=== PATIENT | female | born 1995 | race Caucasian/White ===

== ENCOUNTER 2021-11-13 11:15 | Day surgery (SDC) | payer BC ==
[2021-11-12 13:36] LABS: Specific Gravity 1.015 (1.005-1.030)
[2021-11-12 13:36] LABS: Absolute Lymphocytes (CBC) 1.7 K/uL (0.7-4.9); Hematocrit 38.3 % (36.0-45.0); Lymphocytes % 27.6 % (15.3-44.8); MPV 9.7 fL (7.6-11.3); RBC Red Blood Cell Count 4.62 M/uL (3.86-4.86)
[2021-11-13] MEDS ORDERED: Ringers Lactate 1,000 ML IV ONE (11:22)
[2021-11-13] MEDS ORDERED: ACETAMINOPHEN 500 MG TAB ONE (12:06)
[2021-11-13] MEDS ORDERED: CELECOXIB 100 MG CAPSULE ONE (12:07)
[2021-11-13] MEDS ORDERED: CELECOXIB 100 MG CAPSULE PO ONE (12:10)
[2021-11-13] MEDS ORDERED: ACETAMINOPHEN 500 MG TAB PO ONE (12:10)
[2021-11-13] MEDS ORDERED: LANO/MINERAL OIL/PETRO 3.5 GM ONE ×2 (12:38→15:06)
--- NOTE | 2021-11-13 14:49 | P.HP ---
Date of Service: 11/13/21 PC: This 26-year-old female presented to my office yesterday with severe pain in the thien cleft. HPC: Patient had been out horseback riding about a week ago. Has a history of pilonidal abscesses. Noticed pain discomfort and swelling in that area for the last few days. Pain is intensified. She presents today for an incision and drainage of a pilonidal abscess. PSHx: Drainage of pilonidal abscess PMHx: Negative Social Hx: No known allergies, does not smoke Sys R:, No cough, wheeze, shortness of breath. No chest pain or palpitations O/E: Awake alert moderate distress HEENT: Negative Chest: Chest movement equal bilaterally Abd: Soft [place]: On the left side of the cleft, there is a small area 1.5 cm. Look ing inferiorly we can see old uninfected PITHS in this area Data: Negative Impression: Pilonidal abscess Plan: I will take her to the operating room for incision, drainage, sharp debridement of this pilonidal abscess. The risks of this procedure have been discussed. The possibility of bleeding, infection, return of abscess need for further surgeries and procedures as well as scar formation has been outlined. She understands and wants to proceed.
[2021-11-13] MEDS ORDERED: NS 0.9% VIAL 10 ML ONE (15:06)
[2021-11-13] MEDS ORDERED: FENTANYL CITR 100 MCG/2 ML ONE (15:06)
[2021-11-13] MEDS ORDERED: Phenylephrine HCl 10 MG/ML 1 ML VIAL ONE (15:06)
[2021-11-13] MEDS ORDERED: LIDOCAINE 2% MPF 5 ML VIAL ONE (15:06)
[2021-11-13] MEDS ORDERED: ROCURONIUM 50 MG/5 ML VIAL IV ONE (15:06)
[2021-11-13] MEDS ORDERED: propofoL 200 MG/20 ML VIAL IV ONE (15:06)
[2021-11-13] MEDS ORDERED: dexAMETHasone 10 MG/ML VIAL ONE (15:06)
[2021-11-13] MEDS ORDERED: ONDANSETRON 4 MG/2 ML VIAL ONE (15:06)
[2021-11-13] MEDS: MIDAZOLAM HCL 2 MG/2 ML INJ ONE ×2 (15:30→15:44)
[2021-11-13 15:45] VITALS: TEMP 97.8
--- NOTE | 2021-11-13 15:45 | P.OP ---
Preoperative diagnosis: Pilonidal abscess Postoperative diagnosis: The same Primary procedure: Incision, drainage, sharp debridement of pilonidal abscess Anesthesia: General Estimated blood loss: Less than 10 cc Specimen: None sent Operative Technique: The patient brought the operating room and placed supine on the table. After the induction of adequate general anesthesia, the patient was rolled into the l eft lateral position. The area of the cleft and buttocks were then prepped with a Betadine solution and draped in usual aseptic manner After injecting 1.25% Marcaine a skin incision was made just off the midline on the left buttock. This brought down through the skin and subcutaneous tissue. We encountered a large pocket with purulent material in that area. These loculations were broken down. A #2 nylon was then placed into the wound and brought out more laterally where it was tied upon itself. This is slightly wound will drain and stay open for the next few days until the infection has been relieved. At the end of the procedure a sterile dressing was applied. She was stable and sent to the recovery room Needle sponge instrument count were correct. Complications: None Drain(s): Other (2. Nylon) Transferred to: Recovery Room Condition: Good
[2021-11-13 16:10] VITALS: BP 123/63; O2SAT 100
== END 2021-11-13 16:24 | disposition home or self-care (01) ==
LOC: OR 11:15
PROVIDERS: ATTEND Surgery
PROC: 0JB90ZZ Excision of Buttock Subcutaneous Tissue and Fascia, Open Approach (ICD-10-PCS; principal; 2021-11-13 13:00)
DX: L05.01 Pilonidal cyst with abscess (principal)
CPT/HCPCS: 85025; 36415; 81025; 11770; J2704; J2370; J2250; J3010; J1100; J7120; J2405